=== PATIENT | female | born 1970 | race Caucasian/White ===

== ENCOUNTER → 2019-04-22 11:19 | Outpatient (CLI) | payer BC, SELFPAY ==
--- NOTE | 2019-04-22 | DI.MG.S_ITS ---
BILATERAL DIGITAL SCREENING MAMMOGRAM 3D/2D WITH CAD: 04/22/2019 CLINICAL: Routine screening. Family history of breast cancer. Comparison is made to exams dated: 05/06/2017 mammogram, 04/26/2017 mammogram, and 05/27/2012 mammogram - [facility]. The tissue of both breasts is heterogeneously dense. This may lower the sensitivity of mammography. Current study was also evaluated with a Computer Aided Detection (CAD) system. No significant masses, calcifications, or other findings are seen in either breast. There has been no significant interval change. IMPRESSION: NEGATIVE There is no mammographic evidence of malignancy. A 1 year screening mammogram is recommended. This exam was interpreted at Station ID: [id number]. NOTE: For mammograms, a report in lay terms will be sent to the patient. Approximately 15% of breast malignancies will not be visualized mammographically. In the management of a palpable breast mass, a negative mammogram must not discourage biopsy of a clinically suspicious lesion. Electronically Signed By: Jaida malhotra/lauren:04/22/2019 12:26:42 letter sent: Normal Exam ACR BI-RADS Category 1: Negative 3341F
== END ==
PROVIDERS: PCP Family Medicine; Visit Provider Family Medicine
DX: Z12.31 Encounter for screening mammogram for malignant neoplasm of breast (principal); Z80.3 Family history of malignant neoplasm of breast
CPT/HCPCS: 77063; 77067

== ENCOUNTER → 2020-05-04 14:43 | Outpatient (CLI) | payer BC, SELFPAY ==
--- NOTE | 2020-05-04 14:46 | DI.MG.S_ITS ---
BILATERAL DIGITAL SCREENING MAMMOGRAM 3D/2D WITH CAD: 05/04/2020 CLINICAL: Routine screening. Family history of breast cancer. Comparison is made to exams dated: 04/22/2019 mammogram, 04/26/2017 mammogram, and 05/27/2012 [facility]. The tissue of both breasts is heterogeneously dense. This may lower the sensitivity of mammography. Current study was also evaluated with a Computer Aided Detection (CAD) system. No significant masses, calcifications, or other findings are seen in either breast. There has been no significant interval change. IMPRESSION: NEGATIVE There is no mammographic evidence of malignancy. A 1 year screening mammogram is recommended. This exam was interpreted at Station ID: [id number]. NOTE: For mammograms, a report in lay terms will be sent to the patient. Approximately 15% of breast malignancies will not be visualized mammographically. In the management of a palpable breast mass, a negative mammogram must not discourage biopsy of a clinically suspicious lesion. Electronically Signed By: Rivera Vallejo acr/lauren:05/04/2020 15:12:29 letter sent: Normal Exam ACR BI-RADS Category 1: Negative 3341F
== END ==
PROVIDERS: PCP Family Medicine; Referring Provider Family Medicine; Visit Provider Family Medicine
DX: Z12.31 Encounter for screening mammogram for malignant neoplasm of breast (principal); Z80.3 Family history of malignant neoplasm of breast
CPT/HCPCS: 77063; 77067

== ENCOUNTER → 2022-03-18 15:45 | Outpatient (CLI) | payer BC, SELFPAY ==
--- NOTE | 2022-03-18 15:46 | DI.CT.S_ITS ---
PROCEDURE: CT SINUS SCREEN WO CON INDICATIONS: Chronic pansinusitis TECHNIQUE: Noncontrast 3.0 mm axial images acquired from the frontal sinuses to the mid-sella, with coronal and sagittal reformats. For radiation dose reduction, the following was used: automated exposure control, adjustment of mA and/or kV according to patient size. COMPARISON: None. FINDINGS: Image quality: Excellent. Maxillary Sinuses: At least moderate mucosal thickening can be seen within the maxillary sinuses on both sides. There is partial absence of the medial wall of right maxillary sinus. There is thickening of the anterior and lateral bae of the right maxillary sinus. There is mild demineralization of wall left maxillary sinus. Ethmoid Air Cells: No bony remodeling or destruction. Sinuses are clear. Sphenoid Sinuses: No bony remodeling or destruction. Sinuses are clear. Frontal Sinuses: No bony remodeling or destruction. Sinuses are clear. Ostiomeatal Complexes: Ostiomeatal complexes are patent, yet they are constitutionally narrowed. No Jaylin cells. Miscellaneous: Visualized intra-orbital contents are normal. No alejandro bullosa or paradoxical turbinate curvature. There is mild S shaped nasal septal deviation. IMPRESSION: Focal maxillary sinus mucosal thickening is seen. Prior removal of portion of the medial wall of the right maxillary sinus. The demineralization of the medial wall of the left maxillary sinus and the thickening of the anterior and lateral bae of the right maxillary sinus are consistent chronic sinusitis. Dictated by: David Baltazar M.D. on 03/18/2022 at 16:03 Approved by: David Baltazar M.D. on 03/18/2022 at 16:06
== END ==
PROVIDERS: PCP Family Medicine; Referring Provider Otolaryngology; Visit Provider Otolaryngology
DX: J32.4 Chronic pansinusitis (principal); R51.9 Headache, unspecified; J34.2 Deviated nasal septum
CPT/HCPCS: 70486

== ENCOUNTER → 2022-03-28 15:31 | Outpatient (CLI) | payer BC, SELFPAY ==
--- NOTE | 2022-03-28 | DI.MG.S_ITS ---
BILATERAL DIGITAL SCREENING MAMMOGRAM 3D/2D WITH CAD: 03/28/2022 CLINICAL: Routine screening. Family history of breast cancer. Comparison is made to exams dated: 05/04/2020 mammogram, 04/22/2019 mammogram, and 05/06/2017 mammogram - [facility]. Both breasts are heterogeneously dense, which may obscure small masses (category c / 51-75% glandular tissue). Current study was also evaluated with a Computer Aided Detection (CAD) system. No significant masses, calcifications, or other findings are seen in either breast. There has been no significant interval change. IMPRESSION: NEGATIVE There is no mammographic evidence of malignancy. A 1 year screening mammogram is recommended. Based on Tyrer-Cuzick model (a risk assessment model), the patient's lifetime risk is 25.0% and her 10 year risk is 5.9%. If a patient has an elevated risk, a more comprehensive evaluation should be considered and/or a referral to a genetic counselor. The [place] [employer], [employer], and NCCN Guidelines advise the consideration of Breast MRI as an adjunct to screening mammography in patients whose Lifetime risk to develop breast cancer is 20% or higher. This exam was interpreted at Station ID: [id number]. NOTE: For mammograms, a report in lay terms will be sent to the patient. Approximately 15% of breast malignancies will not be visualized mammographically. In the management of a palpable breast mass, a negative mammogram must not discourage biopsy of a clinically suspicious lesion. Electronically Signed By: Rivera Vallejo M.D. acr/lauren:03/29/2022 09:05:55 letter sent: Normal Exam ACR BI-RADS Category 1: Negative 3341F
== END ==
PROVIDERS: PCP Family Medicine; Referring Provider Family Medicine; Visit Provider Family Medicine
DX: Z12.31 Encounter for screening mammogram for malignant neoplasm of breast (principal); Z80.3 Family history of malignant neoplasm of breast
CPT/HCPCS: 77063; 77067

== ENCOUNTER → 2022-10-05 10:31 | Outpatient (CLI) | payer BC, SELFPAY | PROVIDERS: PCP Family Medicine; Visit Provider Physician Assistant | DX: J02.9 Acute pharyngitis, unspecified (principal) | CPT/HCPCS: 87070; 87147 ==

== ENCOUNTER 2023-03-26 09:50 | Day surgery (SDC) | payer BC, SELFPAY ==
--- NOTE | 2023-03-26 | PATH_ITS ---
[facility] Accession Number: [id number] No. of containers..02 Tissue . 01 Material submitted: . PART A: colon - ASCENDING COLON POLYP PART B: colon - HEPATIC FLEXURE POLYP . 01 Diagnosis: A. Ascending Colon Polyp, Biopsy: Tubular adenoma. . B. Hepatic Flexure Colon Polyp, Biopsy: Hyperplastic polyp. MRV 04/07/2023 1455 Local . 01 Electronically signed: . Sunitha Solis MD, Pathologist NPI- [id number] . 01 Gross description: . Part A: ASCENDING COLON POLYP: Received in formalin are 2 fragment(s) of moe, soft tissue measuring 0.1 x 0.1 x 0.1 cm to 0.2 x 0.2 x 0.2 cm submitted entirely in 1 cassette(s) Part B: HEPATIC FLEXURE POLYP: Received in formalin is 1 fragment(s) of moe, soft tissue measuring 0.3 x 0.2 x 0.2 cm submitted entirely in 1 cassette(s) /BENNETT 03/27/2023 2230 Local . 01 Pathologist provided ICD-10: D12.2, D12.3 . 01 CPT . 292760, 859373 Specimen Comment: A courtesy copy of this report has been sent to [phone] Performed at: 01 [facility] [address] [place] [address], [place], [place] [id number] MD Vic Dorado MD Phone: [phone]
[2023-03-26 10:04] VITALS: BP 126/83; PULSE 81; RESP 16; TEMP 36.8; O2SAT 98; BMI 23.1
[2023-03-26] MEDS: LACTATED RINGERS 1,000 ML 125 ML IV (10:20)
--- NOTE | 2023-03-26 11:03 | P.HP_ITS ---
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) Smoking Status: Never smoker alcohol intake: current substance use type: does not use Meds Home Medications and Allergies Home Medications Medication Instructions Recorded Confirmed Type sertraline 100 mg tablet 100 mg PO DAILY #90 tabs 12/12/22 03/26/23 Rx Allergies Allergy/AdvReac Type Severity Reaction Status Date / Time No Known Drug Allergies Allergy Verified 05/02/22 14:04 Review of Systems Review of Systems ROS: Yes All systems reviewed with the patient and are negative except as otherw ise documented Exam Vital Signs (past 8 hours): - 03/26/23 10:04 Temperature 98.3 F Pulse Rate 81 Respiratory Rate 16 Blood Pressure 126/83 Pulse Oximetry 98 Oxygen Delivery Method Room Air Oxygen Delivery Method Room Air Const General: cooperative, healthy appearing and comfortable Nutritional Appearance: average body habitus HENGA Head: normocephalic and atraumatic Eyes General: appearance normal, both eyes and all related structures Neck Neck: no meningeal signs and trachea midline Resp Effort & Inspection: normal respiratory effort and able to speak in complete sentences Cardio Rate: regular rate Rhythm: regular rhythm GI Palpation: soft Skin General: elasticity normal and turgor normal Neuro General: patient alert, patient awake and patient oriented x3 Cognition: normal cognition Psych Appearance: grossly normal Mental Status: mental status grossly normal Affect: normal affect Judgment: judgment good Assessment & Plan Assessment & Plan narrative: Colonoscopy with anesthesia for colon cancer screening
--- NOTE | 2023-03-26 11:31 | PM.OP.COLON ---
Operative Date/Time/Diagnoses Date of procedure: 03/26/23 Time of procedure: 11:31 Pre-op diagnosis: Colon cancer screening Post-op diagnosis: same Procedure & Clinicians Study performed: Colonoscopy with cold forceps polypectomy x2 under anesthesia Same procedure as scheduled: Yes Indications: Colon cancer screening Surgeon: Idalia Zarate Procedure Notes Procedure in detail: Preop diagnosis: Colon cancer screening Postop diagnosis: Same Operative procedure: Colonoscopy with cold forceps polypectomy x2 under anesthesia Surgeon: Bozena Zarate MD Findings: 2 sessile polyps taken with cold forceps. One in the proximal descending colon 2 mm in size. And 1 of the hepatic flexure, 3.5 mm in size Procedure: Patient placed in a lateral position rectal exam performed showing normal tone no masses. Colonoscope inserted into the rectum and advanced to ileocecal valve with minimal difficulty. Insufflation extraction scope and the above findings. Retroflex was included in the rectum. Impression: 2 sessile polyps identified as possibly adenomatous. Cold forceps biopsies were taken. Plan: Repeat colonoscopy 5 years unless otherwise indicated by change in clinical condition Findings: polyp(s) Specimen(s): other (Proximal ascending colon polyp, hepatic flexure colon polyp.) Complications: none Post-procedure Recommendations: Colonoscopy in 5 years Follow up: as needed Disposition: PACU
[2023-03-26 11:34] VITALS: BP 90/61; PULSE 68; RESP 16; TEMP 36.7; O2SAT 98
[2023-03-26 11:40] VITALS: BP 101/64; PULSE 61; RESP 14; TEMP 36.7; O2SAT 99
[2023-03-26 11:46] VITALS: BP 111/76; PULSE 61; RESP 12; TEMP 36.6; O2SAT 100
[2023-03-26 11:54] VITALS: BP 114/71; PULSE 62; RESP 14; TEMP 36.6; O2SAT 98
== END 2023-03-26 12:00 | disposition home or self-care (01) ==
PROVIDERS: Referring Provider Surgery; Visit Provider Surgery
PROC: 0DJD8ZZ Inspection of Lower Intestinal Tract, Via Natural or Artificial Opening Endoscopic (ICD-10-PCS; CPT 45378; principal; 2023-03-26 10:45)
DX: Z12.11 Encounter for screening for malignant neoplasm of colon (principal); D12.2 Benign neoplasm of ascending colon; K63.5 Polyp of colon
CPT/HCPCS: 45380; J2704

== ENCOUNTER → 2023-04-11 13:10 | Outpatient (CLI) | payer BC, SELFPAY ==
--- NOTE | 2023-04-11 13:10 | DI.MG.S_ITS ---
BILATERAL DIGITAL SCREENING MAMMOGRAM 3D/2D WITH CAD: 04/11/2023 CLINICAL: Routine screening. Family history of breast cancer. Comparison is made to exams dated: 03/28/2022 mammogram, 05/04/2020 mammogram, and 04/22/2019 mammogram - [facility]. Both breasts are heterogeneously dense, which may obscure small masses (category c / 51-75% glandular tissue). Current study was also evaluated with a Computer Aided Detection (CAD) system. No significant masses, calcifications, or other findings are seen in either breast. IMPRESSION: NEGATIVE There is no mammographic evidence of malignancy. A 1 year screening mammogram is recommended. Based on Tyrer-Cuzick model (a risk assessment model), the patient's lifetime risk is 24.8% and her 10 year risk is 6.2%. If a patient has an elevated risk, a more comprehensive evaluation should be considered and/or a referral to a genetic counselor. The [place] [employer], [employer], and NCCN Guidelines advise the consideration of Breast MRI as an adjunct to screening mammography in patients whose Lifetime risk to develop breast cancer is 20% or higher. This exam was interpreted at Station ID: [id number]. NOTE: For mammograms, a report in lay terms will be sent to the patient. Approximately 15% of breast malignancies will not be visualized mammographically. In the management of a palpable breast mass, a negative mammogram must not discourage biopsy of a clinically suspicious lesion. Electronically Signed By: Alexa Norton M.D., PH.D helen/lauren:04/12/2023 10:34:11 letter sent: Normal Exam ACR BI-RADS Category 1: Negative 3341F
== END ==
PROVIDERS: PCP Family Medicine; Referring Provider Family Medicine; Visit Provider Family Medicine
DX: Z12.31 Encounter for screening mammogram for malignant neoplasm of breast (principal); Z80.3 Family history of malignant neoplasm of breast
CPT/HCPCS: 77063; 77067

== ENCOUNTER → 2023-04-28 12:34 | Outpatient (CLI) | payer BC, SELFPAY ==
--- NOTE | 2023-04-28 13:22 | DI.MRI.S_ITS ---
BREAST MRI OF BOTH BREASTS: 04/28/2023 CLINICAL: Increased risk of Breast Cancer. PROCEDURE: MR BREAST BI WO/W CON INDICATIONS: Elevated lifetime risk based on mammogram TECHNIQUE: The patient was placed prone in a dedicated breast imaging coil. Precontrast axial STIR and 3D FLASH without fat saturation sequences were obtained. Both before and after bolus injection of contrast, sequential 1-minute axial 3D FLASH with fat saturation sequences for 3 time points, with subtraction images and maximum intensity projections (MIP's) generated. Delayed sagittal FLASH images with fat saturation were also obtained. Computer-aided detection, including computer algorithm analysis of MRI image data for lesion detection and characterization, pharmacokinetic analysis, with further physician review for interpretation, was performed. COMPARISON: None. FINDINGS: Image quality: Excellent. There is minimal background parenchymal enhancement. Right breast: No suspicious enhancement or mass lesions. Left breast: No suspicious enhancement or mass lesions. Miscellaneous: Axillary or intramammary adenopathy. Limited visualization of the heart, lungs, mediastinum and upper abdomen are unremarkable. IMPRESSION: NEGATIVE Negative breast MRI. A 1 year screening mammogram is recommended. Future imaging is recommended as follows: 04/11/2024 screening mammogram. This exam was interpreted at Station ID: [id number]. Electronically Signed By: Sylvia palma/:04/28/2023 15:00:18 Entry: aa - 04/29/2023 11:09:25 ACR BI-RADS Category 1: Negative 3341F
== END ==
PROVIDERS: PCP Family Medicine; Referring Provider Physician Assistant; Visit Provider Physician Assistant
DX: Z91.89 Other specified personal risk factors, not elsewhere classified (principal); Z12.39 Encounter for other screening for malignant neoplasm of breast
CPT/HCPCS: 77049; A9579

== ENCOUNTER → 2023-08-08 17:42 | Outpatient (CLI) | payer BC, SELFPAY ==
--- NOTE | 2023-08-08 17:46 | DI.RAD.S_ITS ---
PROCEDURE: XR SHOULDER LT MIN 2V INDICATIONS: Left shoulder strain TECHNIQUE: 3 views of the shoulder were acquired. COMPARISON: None. FINDINGS: Bones: No fractures or dislocations. No suspicious bony lesions. Visualized ribs appear intact. Soft tissues: No suspicious soft tissue calcifications. IMPRESSION: No shoulder fracture or dislocation. No gross soft tissue abnormalities. Dictated by: Yasmany Nice M.D. on 08/09/2023 at 10:52 Approved by: Yasmany Nice M.D. on 08/09/2023 at 10:53
== END ==
PROVIDERS: PCP Family Medicine; Referring Provider Nurse Practitioner Family; Visit Provider Nurse Practitioner Family
DX: S46.912A Strain of unspecified muscle, fascia and tendon at shoulder and upper arm level, left arm, initial encounter (principal); X58.XXXA Exposure to other specified factors, initial encounter
CPT/HCPCS: 73030

== ENCOUNTER → 2025-04-11 14:46 | Outpatient (CLI) | payer BC, SELFPAY ==
--- NOTE | 2025-04-11 14:47 | DI.MG.S_ITS ---
MM screening mammo BI: 04/11/2025. BI-RADS: 1 CLINICAL: 54-year old female for bilateral screening mammogram. Tyrer-Cuzick lifetime risk of 12.9%. Current reported family history of breast cancer: mother. PRIOR EXAMS 04/28/2023, 04/11/2023, 03/28/2022, 05/04/2020, MAMMOGRAPHY TECHNIQUE: 2D and 3D (tomosynthesis) digital mammographic views obtained, with additional images as needed for full coverage. Current study was also evaluated with a Computer Aided Detection (CAD) system. DENSITY B. There are scattered areas of fibroglandular density. MAMMOGRAPHY FINDINGS Bilateral: No suspicious mass, asymmetry, microcalcification, or other abnormality seen. No significant change from comparison. IMPRESSION: * No evidence of malignancy. RECOMMENDATIONS Bilateral * Annual screening mammography. OVERALL ASSESSMENT CATEGORY BI-RADS-1: Negative. The [employer] recommends annual screening mammography beginning at age 40 for women with average risk of breast cancer. ELECTRONICALLY SIGNED: Jaida Mensah M.D. on 04/12/2025 at 08:55:46 AM PT Interpreting Station ID: [id number]
== END ==
LOC: MAMMO 14:47
PROVIDERS: PCP Family Medicine; Referring Provider Family Medicine; Visit Provider Family Medicine
DX: Z12.31 Encounter for screening mammogram for malignant neoplasm of breast (principal); Z80.3 Family history of malignant neoplasm of breast
CPT/HCPCS: 77063; 77067

== ENCOUNTER → 2025-05-03 16:04 | Outpatient (CLI) | payer BC, SELFPAY | PROVIDERS: PCP Family Medicine; Referring Provider Physician Assistant; Visit Provider Physician Assistant | DX: N89.8 Other specified noninflammatory disorders of vagina (principal) | CPT/HCPCS: 87210 ==